=== PATIENT | male | born 1970 | race Asian ===

== ENCOUNTER 2018-01-27 15:15 | Emergency (ER) | payer OTHER ==
[~2018-01-27] VITALS: Ht 177.8 cm; Wt 90.7 kg
[2018-01-27 15:34] VITALS: Ht 177.8 cm; Wt 90.7 kg
[2018-01-27 16:33] LABS: BASOPHIL % 0.1 % (0-2); PLATELET COUNT 265 x10^3mcL (130-400); RED CELL DISTRIBUTION WIDTH 13.4 % (11.5-14.5)
[2018-01-27 16:50] LABS: C REACTIVE PROTEIN 1.9 mg/dL (<=0.9); URIC ACID 8.2 mg/dL (3.5-7.2)
[2018-01-27 17:24] VITALS: BP 139/89
[2018-01-27 18:32] LABS: ERYTHROCYTE SED RATE 14 mm/hr (0-15)
== END 2018-01-27 17:24 | disposition home or self-care (01) ==
LOC: ED 15:15
PROVIDERS: Emergency Medicine
DX: M25.462 Effusion, left knee (principal)
CPT/HCPCS: 36415; J2001